=== PATIENT | male | born 1970 | race Two or more races ===

== ENCOUNTER 2024-07-25 19:48 | Emergency (ER) | payer OTHER, SELFPAY ==
--- NOTE | ~2024-07-25 | US_ITS ---
EXAMINATION: US ABDOMEN LIMITED CLINICAL INFORMATION: Right upper quadrant pain. COMPARISON: None available. TECHNIQUE: Real-time imaging of the right upper quadrant abdominal viscera. FINDINGS: GALLBLADDER: There are multiple echogenic mobile gallstones with gallbladder wall thickness measuring 0.2 cm. Some echogenic debris seen within as well. No pericholecystic fluid collection. COMMON BILE DUCT: Normal in caliber measuring 0.3 cm in diameter. FREE FLUID: None. US/US abdomen limited IMPRESSION: Mobile gallstones without wall thickening or tenderness in right upper quadrant. Scattered debris seen within the gallbladder. Normal gallbladder wall thickness. Electronically signed by: Adebayo Navarrete MD 07/25/2024 09:11 PM EST RP
[2024-07-25 19:52] VITALS: BP 142/94; PULSE 90; RESP 18; TEMP 37.1; O2SAT 98; BMI 29.4
--- NOTE | 2024-07-25 19:52 | ED_ITS ---
HPI - General Adult General Chief complaint: Abdominal Pain Stated complaint: rt side pain under ribs/heartburn? Time Seen by Provider: 07/26/24 00:58 Source: patient Mode of arrival: ambulatory Limitations: no limitations History of Present Illness ED Provider: HPI narrative: Patient with no history of gallstones complaining of right upper quadrant pain for last 3 days getting worse after eating food denied patient has got woke pain denies any nausea vomiting or diarrhea never had similar pain in the past no fever no chills Related Data Previous Rx's ?Medication ?Instructions ?Recorded oxycodone 5 mg tablet 5 mg PO Q6H PRN pain #20 tabs 07/26/24 Allergies Allergy/AdvReac Type Severity Reaction Status Date / Time No Known Allergies Allergy Verified 07/26/24 16:22 Review of Systems 2 Review of Systems: Yes all other systems are reviewed and are negative PMFSH Social History Social History Household Members: Spouse Housing: House Do you presently have visiting nurse or other home services: No Patient Tobacco Use Status: Current someday Tobacco user Tobacco use type: Cigarette Cigarettes Per Day: 1 Smoked in Last 30 Days: Yes Patient Interested in Nicotine Replacement: No Patient Given Instructions on How to Stop Smoking: No Second Hand Smoke Exposure: No Use of substances other than those prescribed or required for medical reasons: No Have you been hit, kicked, punched, or otherwise hurt by someone within the past year? If so, by whom?: No Do you feel safe in your current relationship?: Yes Is there a partner from a previous relationship who is making you feel unsafe now?: No Are you made to feel afraid or neglected: No Advance Directives: No Advance Directives Information Provided: No Do you have a plan to hurt others: No Plan Recently lost weight without trying: No How much weight loss: Not applicable Eating poorly because of decreased appetite: No Nutrition screen score: 0 Nutrition Risks: No Nutritional Risk Poor oral hygiene: No Physical Exam ED Vital Signs: Vital Signs - 24 hr 07/25/24 19:52 07/26/24 00:32 Temperature 98.8 F 99.3 F Pulse Rate 90 89 Respiratory Rate 18 18 Blood Pressure 142/94 H 147/93 H Pulse Oximetry 98 98 Oxygen Delivery Method Room Air Room Air BMI result Body Mass Index 29.4 Appearance: Alert. Oriented X3. No acute distress. Eyes: No pallor or icterus ENT: Pharynx normal. Oral Mucosa moist Neck: Normal inspection. Neck supple. CVS: Normal heart rate and rhythm. Pulses normal. Respiratory: No respiratory distress. Equal air entry bilateral, no wheezing/rales/rhonchi Abdomen: Soft and tenderness in right upper quadrant and epigastric area no rebound tenderness or guarding Bowel sounds are present, no mass palpable, no CVA tenderness Skin: Skin warm and dry. Normal skin color. Normal skin turgor. Extremities: No lower extremity edema. No calf tenderness Neuro: Oriented X 3. No motor deficit. Course Course Course Narrative: RME, this is a rapid medical exam performed by Ryne Harding please refer to primary provider for complete H&P- 53 year old male presents for evaluation of right sided upper abdominal pain pain that started 4 days ago. His pain is worse after eating fried food. Plan for labs, ultrasound of GB Medications Administered Discontinued Medications Generic Name Dose Route Start Last Admin Trade Name Joseq PRN Reason Stop Dose Admin Ketorolac Tromethamine 60 mg 07/26/24 01:30 07/26/24 01:48 Ketorolac Tromethamine 60 Mg/2 Ml Vial IM 07/26/24 01:31 60 mg ONCE ONE Administration Morphine Sulfate 15 mg 07/26/24 01:30 07/26/24 01:48 Morphine Sulfate Immed Release 15 Mg Tablet PO 07/26/24 01:31 15 mg ONCE ONE Administration Medical Decision Making Medical Decision Making [facility] Narrative: Patient with gallstone/biliary colic no vomiting LFTs are normal no gallbladder wall thickness patient advised to see surgeon today as outpatient Differential Diagnosis Differential Diagnoses: The differential diagnosis associated with the presentation includes Cholelithiasis /cholecystitis Lab Data [facility] Lab Attestation statement: I reviewed the patient's lab results. 07/25/24 20:44 07/25/24 20:44 Labs: Lab Results 07/25/24 Range/Units 20:44 WBC 11.6 H (4.8-10.8) X10*3/uL RBC 5.05 (4.60-5.80) X10*6/uL Hgb 15.4 (14.0-18.0) g/dl Hct 44.6 (42.0-52.0) % MCV 88.3 (80.0-98.0) fL MCH 30.5 (27.0-33.0) pg MCHC 34.5 (31.0-36.0) g/dl RDW 12.9 (11.0-16.0) % Plt Count 187 (160-400) X10*3/uL MPV 9.2 L (9.4-12.4) fL Immature Gran % (Auto) 0.3 (0.0-0.4) % Neut % (Auto) 83.4 H (45-73) % Lymph % (Auto) 10.5 L (20-40) % [place] % (Auto) 5.3 (2-11) % Eos % (Auto) 0.1 (0-4) % Baso % (Auto) 0.4 (0-2) % Lymph # (Auto) 1.2 (1.2-4.9) X10*3/uL [place] # (Auto) 0.6 (0.1-1.2) X10*3/uL Eos # (Auto) 0.0 (0.0-0.4) X10*3/uL Baso # (Auto) 0.1 (0.0-0.2) X10*3/uL Abs Immat Gran (auto) 0.03 (0.00-0.03) X10*3/uL Absolute Neuts (auto) 9.7 H (2.0-8.3) x10*3/uL Absolute Nucleated RBC 0.000 (0.0-0.012) X10*3/uL Nucleated RBC % (auto) 0.0 (0.0-0.2) /100WBC Sodium 133 L (135-145) mmol/L Potassium 4.2 (3.3-5.1) mmol/L Chloride 99 (96-108) mmol/L Carbon Dioxide 27 (22-29) mmol/L Anion Gap 11 L (12-20) BUN 17 H (9-16) mg/dL Creatinine 0.85 (0.5-1.4) mg/dL Estim Creat Clear Calc 101.3 Estimated GFR > 60 Random Glucose 171 H (60-115) mg/dL Calcium 9.3 (8.4-10.2) mg/dL Total Bilirubin 1.1 H (0.0-1.0) mg/dL AST 21 (5-37) U/L ALT 29 (0-40) U/L Alkaline Phosphatase 65 (39-117) U/L Total Protein 7.7 (6.5-8.0) g/dL Albumin 4.4 (3.5-5.0) g/dL Lipase 14 (8-78) U/L Radiology Impression Discussion of test interpretation with radiology: I have reviewed the radiologist's reading. Radiologist Impression: [address] [address] Ultrasound Report Signed Patient: Stan Hughes MR#: [id number] : 1970 Acct:[id number] Age/Sex: 53 / M ADM Date: 07/25/24 Loc: .ED Attending Dr: Ordering Physician: Khris Harding Date of Service: 07/25/24 Procedure(s): US abdomen limited Accession Number(s): [id number] cc: JOAN MICHAUD MD; Khris Harding~ EXAMINATION: US ABDOMEN LIMITED CLINICAL INFORMATION: Right upper quadrant pain. COMPARISON: None available. TECHNIQUE: Real-time imaging of the right upper quadrant abdominal viscera. FINDINGS: GALLBLADDER: There are multiple echogenic mobile gallstones with gallbladder wall thickness measuring 0.2 cm. Some echogenic debris seen within as well. No pericholecystic fluid collection. COMMON BILE DUCT: Normal in caliber measuring 0.3 cm in diameter. FREE FLUID: None. US/US abdomen limited IMPRESSION: Mobile gallstones without wall thickening or tenderness in right upper quadrant. Scattered debris seen within the gallbladder. Normal gallbladder wall thickness. Electronically signed by: Adebayo Navarrete MD 07/25/2024 09:11 PM [facility] Discharge Plan Discharge Clinical Impression: Gallstone Patient Disposition: Home, Self-Care Instructions: Gallstones (ED) Additional Instructions: Drink plenty of fluids Avoid fried foods Pain medication as prescribed Follow up with surgeon Report to the ER if worsening of the pain/vomiting Prescriptions: New oxycodone 5 mg tablet 5 mg PO Q6H PRN (Reason: pain) Qty: 20 0RF Rx Instructions: Partial Fill upon patient request. Referrals: Abdirahman Reveles MD [Physician] - 1 week Interventions: ED Discharge Assessment Last Done: 07/26/24 02:14 Discharge Date/Time: 07/26/24 02:15 Print Language: Turkish
--- NOTE | 2024-07-25 19:55 | ECG_ITS ---
Test Reason : ABD PAIN Blood Pressure : / mmHG Vent. Rate : 092 BPM Atrial Rate : 092 BPM P-R Int : 136 ms QRS Dur : 090 ms QT Int : 352 ms P-R-T Axes : 046 032 035 degrees QTc Int : 435 ms Sinus rhythm with occasional Premature ventricular complexes Otherwise normal ECG No previous ECGs available Referred By: Khris Harding Electronically Signed By:ASHOK MEDRANO
[2024-07-25 20:49] LABS: MANUAL DIFF FLAG NO
[2024-07-25 20:51] LABS: Basophils Absolute Auto 0.1 X10*3/uL (0.0-0.2); Basophils Percent Auto 0.4 % (0-2); Eosinophils Percent Auto 0.1 % (0-4); Hematocrit 44.6 % (42.0-52.0); Hemoglobin 15.4 g/dl (14.0-18.0); Imm Gran Abs Auto 0.03 X10*3/uL (0.00-0.03); Imm Gran Pct Auto 0.3 % (0.0-0.4); Lymphocytes Absolute Auto 1.2 X10*3/uL (1.2-4.9); Lymphocytes Percent Auto 10.5 % (20-40); Mean Corpuscular HGB Conc 34.5 g/dl (31.0-36.0); Mean Corpuscular Hemoglobin 30.5 pg (27.0-33.0); Mean Corpuscular Volume 88.3 fL (80.0-98.0); Mean Platelet Volume 9.2 fL (9.4-12.4); Monocytes Absolute Auto 0.6 X10*3/uL (0.1-1.2); Monocytes Percent Auto 5.3 % (2-11); Neutrophils Absolute Auto 9.7 x10*3/uL (2.0-8.3); Neutrophils Percent Auto 83.4 % (45-73); Platelet Count 187 X10*3/uL (160-400); Red Blood Count 5.05 X10*6/uL (4.60-5.80); Red Cell Distribution Width 12.9 % (11.0-16.0); White Blood Count 11.6 X10*3/uL (4.8-10.8)
[2024-07-25 21:08] LABS: Alanine Aminotransferase 29 U/L (0-40); Albumin Level 4.4 g/dL (3.5-5.0); Alkaline Phosphatase 65 U/L (39-117); Anion Gap 11 (12-20); Aspartate Amino Transferase 21 U/L (5-37); Bilirubin Total 1.1 mg/dL (0.0-1.0); Blood Urea Nitrogen 17 mg/dL (9-16); Calcium 9.3 mg/dL (8.4-10.2); Carbon Dioxide 27 mmol/L (22-29); Chloride 99 mmol/L (96-108); Creatinine Clr Calc Pharmacy 101.3; Estimated Glomerular Filt Rate > 60; Glucose Random 171 mg/dL (60-115); Lipase 14 U/L (8-78); Potassium 4.2 mmol/L (3.3-5.1); Sodium 133 mmol/L (135-145); Total Protein 7.7 g/dL (6.5-8.0)
[2024-07-26 00:32] VITALS: BP 147/93; PULSE 89; RESP 18; TEMP 37.4; O2SAT 98
[2024-07-26] MEDS: Morphine Sulfate Immed Release 15 MG TABLET PO (01:48)
[2024-07-26] MEDS: Ketorolac Tromethamine 60 MG/2 ML VIAL IM (01:48)
[2024-07-26 02:14] VITALS: BP 147/93; PULSE 89; RESP 18; TEMP 37.4; O2SAT 98
== END 2024-07-26 02:15 | disposition home or self-care (01) ==
PROVIDERS: Physician Assistant; Emergency Provider Internal Medicine; PCP Pediatrics
DX: K80.20 Calculus of gallbladder without cholecystitis without obstruction (principal); R10.2 Pelvic and perineal pain; R10.13 Epigastric pain; F17.210 Nicotine dependence, cigarettes, uncomplicated; Z79.899 Other long term (current) drug therapy
CPT/HCPCS: 36415; 76705; 80053; 83690; 85025; 93005; 96372; 99284; J1885

== ENCOUNTER → 2024-07-25 19:55 | Outpatient (BNV) | payer MEDICAID, SELFPAY | PROVIDERS: Emergency Provider Internal Medicine; PCP Pediatrics; Visit Provider Internal Medicine | DX: R10.9 Unspecified abdominal pain (principal) | CPT/HCPCS: 93010 ==

== ENCOUNTER 2024-07-26 16:17 | Inpatient (IN) | payer OTHER, SELFPAY ==
--- NOTE | ~2024-07-26 | CT_ITS ---
EXAMINATION: CT ABDOMEN AND PELVIS WITH CONTRAST CLINICAL INFORMATION: pain, cholecystitis COMPARISON: Same day right upper quadrant ultrasound dated 07/26/2024 TECHNIQUE: Multidetector volumetric images were obtained from the superior aspect of the liver through the pubic symphysis following administration 85 mL of Omnipaque 350 intravenous contrast. Sagittal and coronal reformatted images were obtained on the technologist's workstation. Oral contrast: No This CT examination was performed using dose optimization techniques as appropriate, variously including the following: *Automated exposure control *Adjustment of mA and/or kV according to patient size (this includes techniques or standardized protocols for targeted exams where dose is matched to indication/reason for exam; i.e. extremities or head) *Use of iterative reconstruction technique DLP: 516 mGy-cm FINDINGS: LUNG BASES: Right basilar atelectasis. LIVER, GALLBLADDER, AND BILIARY TREE: The liver is normal in size, shape, and attenuation. No focal hepatic lesion or biliary ductal dilatation is present. The gallbladder is distended with extensive pericolonic stranding likely representing acute cholecystitis. The stranding extends around the hepatic flexure of the colon and down into the right paracolic gutter, where there is a small amount of free fluid. No drainable fluid collection. There is mucosal hyperenhancement of the common bile duct, which is otherwise not dilated but is concerning for cholangitis. PANCREAS: Unremarkable. SPLEEN: Unremarkable. ADRENAL GLANDS: Unremarkable. KIDNEYS AND URETERS: The kidneys are normal in size, shape, and attenuation. No hydronephrosis, hydroureter, or calculi seen. No perinephric stranding. BLADDER: Unremarkable. GASTROINTESTINAL TRACT: Small hiatal hernia. Circumferential bowel wall thickening in the hepatic flexure and extensive pericolonic stranding, which is an extension of the pericholecystic stranding, which then continues into the right paracolic cutter. Mild diverticulosis in the descending and sigmoid colon without secondary signs of acute diverticulitis. The small bowel is unremarkable. The appendix is unremarkable. ABDOMINAL WALL: No significant hernia is appreciated. LYMPH NODES: Normal. VASCULAR: Mild scattered atherosclerosis of the aorta and its branches. No abdominal aortic aneurysm. PELVIC VISCERA: Unremarkable. OSSEOUS STRUCTURES: Mild degenerative changes of the spine. CT/CT abdomen pelvis w IV con IMPRESSION: 1. Acute cholecystitis with a distended gallbladder and extensive pericholecystic stranding. The stranding extends around the hepatic flexure of the colon and down into the right paracolic gutter, where there is a small amount of free fluid. No drainable fluid collection. 2. Mucosal hyperenhancement of the common bile duct, which is otherwise not dilated but is concerning for cholangitis. 3. Circumferential wall thickening of the hepatic flexure and extensive pericolonic stranding, which is likely an extension of the pericholecystic stranding, as above. However, recommend colonoscopy after resolution of acute symptoms. 4. Mild diverticulosis in the descending and sigmoid colon without secondary signs of acute diverticulitis. 5. Small hiatal hernia. Fleischner guidelines were followed. Electronically signed by: Carin Abreu MD 07/26/2024 11:00 PM [facility]
--- NOTE | ~2024-07-26 | US_ITS ---
EXAMINATION: US ABDOMEN LIMITED CLINICAL INFORMATION: Right upper quadrant pain. COMPARISON: 07/25/2024 TECHNIQUE: Real-time imaging of the right upper quadrant abdominal viscera. FINDINGS: GALLBLADDER: Gallbladder is distended distended with multiple stones. There is small volume pericholecystic fluid and possible fluid within the gallbladder wall. No gallbladder wall thickening. Positive sonographic Quinteros's sign. COMMON BILE DUCT: Normal in caliber measuring 0.3 cm in diameter. US/US abdomen limited IMPRESSION: Cholelithiasis with small volume pericholecystic fluid and possible fluid within the gallbladder wall. Positive sonographic Quinteros's sign. These findings are concerning for acute cholecystitis. Electronically signed by: Stefany Ace MD 07/26/2024 07:59 PM [facility]
[2024-07-26 16:19] VITALS: BP 130/87; PULSE 104; RESP 18; TEMP 36.6; O2SAT 99; BMI 29.4
[2024-07-26 16:42] LABS: MANUAL DIFF FLAG NO
[2024-07-26 16:44] LABS: Basophils Percent Auto 0.2 % (0-2); Hematocrit 48.2 % (42.0-52.0); Hemoglobin 16.4 g/dl (14.0-18.0); Imm Gran Pct Auto 0.6 % (0.0-0.4); Lymphocytes Absolute Auto 0.7 X10*3/uL (1.2-4.9); Lymphocytes Percent Auto 4.5 % (20-40); Mean Corpuscular Hemoglobin 29.9 pg (27.0-33.0); Mean Corpuscular Volume 87.8 fL (80.0-98.0); Mean Platelet Volume 9.2 fL (9.4-12.4); Monocytes Absolute Auto 1.3 X10*3/uL (0.1-1.2); Monocytes Percent Auto 7.8 % (2-11); Neutrophils Absolute Auto 14.2 x10*3/uL (2.0-8.3); Neutrophils Percent Auto 86.9 % (45-73); Platelet Count 210 X10*3/uL (160-400); Red Blood Count 5.49 X10*6/uL (4.60-5.80); Red Cell Distribution Width 12.8 % (11.0-16.0); White Blood Count 16.4 X10*3/uL (4.8-10.8)
[2024-07-26 17:10] LABS: Albumin Level 4.4 g/dL (3.5-5.0); Anion Gap 14 (12-20); Aspartate Amino Transferase 28 U/L (5-37); Bilirubin Direct 0.4 mg/dL (0.0-0.5); Bilirubin Total 1.2 mg/dL (0.0-1.0); Blood Urea Nitrogen 17 mg/dL (9-16); Calcium 10.4 mg/dL (8.4-10.2); Carbon Dioxide 29 mmol/L (22-29); Chloride 95 mmol/L (96-108); Creatinine Clr Calc Pharmacy 76.2; Estimated Glomerular Filt Rate > 60; Glucose Random 193 mg/dL (60-115); Lipase 29 U/L (8-78); Potassium 4.7 mmol/L (3.3-5.1); Sodium 133 mmol/L (135-145); Total Protein 8.1 g/dL (6.5-8.0)
[2024-07-26 17:28] LABS: Alanine Aminotransferase 26 U/L (0-40); Alkaline Phosphatase 69 U/L (39-117)
--- NOTE | 2024-07-26 19:59 | ED_ITS ---
HPI - Abdominal Pain General Chief Complaint: Abdominal Pain Stated Complaint: ?gallbladder stones Time Seen by Provider: 07/26/24 19:53 Source: patient Limitations: no limitations History of Present Illness ED Provider: Jeanette miller PA-C HPI narrative: 53-year-old male with a history of obesity and known cholelithiasis, presents with ongoing right upper quadrant pain. Patient was seen yesterday in the emergency department, however his symptoms are progressing. He had surgical consult yesterday, he was instructed to return if his symptoms worsened. Pain is unable to eat, he continues to have nausea vomiting. He was sent with pain medications, he can not tolerate them. No fevers. Related Data Previous Rx's ?Medication ?Instructions ?Recorded oxycodone 5 mg tablet 5 mg PO Q6H PRN pain #20 tabs 07/26/24 Allergies Allergy/AdvReac Type Severity Reaction Status Date / Time No Known Allergies Allergy Verified 07/26/24 16:22 Review of Systems Review of Systems Yes all other systems are reviewed and are negative Constitutional: Denies fatigue and Denies fever(s) Cardiovascular: Denies chest pain and Denies dyspnea Respiratory: Denies cough and Denies dyspnea Gastrointestinal: Reports abdominal pain, Reports nausea and Reports vomiting Endocrine: Denies fatigue PMFSH Past Medical History Attestation statement: The following information was validated with the patient. Social History Social History Advance Directives: No Advance Directives Information Provided: No Do you have a plan to hurt others: No Plan Physical Exam ED Vital Signs: Vital Signs - 24 hr 07/26/24 16:19 07/26/24 20:08 Temperature 97.8 F 99.1 F Pulse Rate 104 H 107 H Respiratory Rate 18 18 Blood Pressure 130/87 128/80 Pulse Oximetry 99 94 Oxygen Delivery Method Room Air Room Air BMI result Body Mass Index 29.4 Const Other: Alert Orientation/consciousness: patient oriented x3 Resp Other: Nonlabored respirations Cardio Other: Normal peripheral perfusion GI Other: Abdomen is soft, moderate tenderness epigastric and right upper quadrant with moderate involuntary guarding positive Quinteros's sign Skin Other: Warm dry no rash Neuro General: patient oriented x3, no focal motor deficits and CN's II-XI intact bilaterally Psych Other: Calm cooperative Course Consultations Consultation #1: I paged Dr. Camargo, he will be admitting the patient. He is requesting a CT abdomen and pelvis, due to the elevated bilirubin. We will fractionate Time: 20:14 Medical Decision Making Medical Decision Making MDM Narrative: 53-year-old male with a history of obesity and known cholelithiasis, presents with ongoing right upper quadrant pain. Patient was seen yesterday in the emergency department, however his symptoms are progressing. He had surgical consult yesterday, he was instructed to return if his symptoms worsened. Pain is unable to eat, he continues to have nausea vomiting. He was sent with pain medications, he can not tolerate them. No fevers. Problem: Known cholelithiasis History: Per patient I have considered the following differential diagnoses: Biliary colic, cholecystitis, cholangitis Plan: Screening labs including LFTs and an ultrasound of right upper quadrant were obtained from triage. Patient has a worsening leukocytosis, his LFTs are essentially the same as yesterday. I am waiting on the read of the ultrasound. I will reach out to the surgical service. We will be obtaining blood cultures and starting antibiotics. I have independently reviewed the following tests: Labs: Leukocytosis with left shift, not anemic, no electrolyte abnormality, T bili 1.2 it was 1.1 yesterday the remainder of the LFTs are normal Ultrasound right upper quadrant: US/US abdomen limited IMPRESSION: Cholelithiasis with small volume pericholecystic fluid and possible fluid within the gallbladder wall. Positive sonographic Quinteros's sign. These findings are concerning for acute cholecystitis. Lab Data 07/26/24 16:36 1218 16:36 Labs: Lab Results 07/26/24 Range/Units 16:36 WBC 16.4 H (4.8-10.8) X10*3/uL RBC 5.49 (4.60-5.80) X10*6/uL Hgb 16.4 (14.0-18.0) g/dl Hct 48.2 (42.0-52.0) % MCV 87.8 (80.0-98.0) fL MCH 29.9 (27.0-33.0) pg MCHC 34.0 (31.0-36.0) g/dl RDW 12.8 (11.0-16.0) % Plt Count 210 (160-400) X10*3/uL MPV 9.2 L (9.4-12.4) fL Immature Gran % (Auto) 0.6 H (0.0-0.4) % Neut % (Auto) 86.9 H (45-73) % Lymph % (Auto) 4.5 L (20-40) % [place] % (Auto) 7.8 (2-11) % Eos % (Auto) 0.0 (0-4) % Baso % (Auto) 0.2 (0-2) % Lymph # (Auto) 0.7 L (1.2-4.9) X10*3/uL [place] # (Auto) 1.3 H (0.1-1.2) X10*3/uL Eos # (Auto) 0.0 (0.0-0.4) X10*3/uL Baso # (Auto) 0.0 (0.0-0.2) X10*3/uL Abs Immat Gran (auto) 0.10 H (0.00-0.03) X10*3/uL Absolute Neuts (auto) 14.2 H (2.0-8.3) x10*3/uL Absolute Nucleated RBC 0.000 (0.0-0.012) X10*3/uL Nucleated RBC % (auto) 0.0 (0.0-0.2) /100WBC Sodium 133 L (135-145) mmol/L Potassium 4.7 (3.3-5.1) mmol/L Chloride 95 L (96-108) mmol/L Carbon Dioxide 29 (22-29) mmol/L Anion Gap 14 (12-20) BUN 17 H (9-16) mg/dL Creatinine 1.13 (0.5-1.4) mg/dL Estim Creat Clear Calc 76.2 Estimated GFR > 60 Random Glucose 193 H (60-115) mg/dL Calcium 10.4 H D (8.4-10.2) mg/dL Total Bilirubin 1.2 H (0.0-1.0) mg/dL Direct Bilirubin 0.4 (0.0-0.5) mg/dL AST 28 (5-37) U/L ALT 26 (0-40) U/L Alkaline Phosphatase 69 (39-117) U/L Total Protein 8.1 H (6.5-8.0) g/dL Albumin 4.4 (3.5-5.0) g/dL Lipase 29 (8-78) U/L Discharge Plan Discharge Clinical Impression: Acute cholecystitis due to biliary calculus Patient Disposition: Admitted As Inpatient Prescriptions: No Action oxycodone 5 mg tablet 5 mg PO Q6H PRN (Reason: pain) Qty: 20 0RF Rx Instructions: Partial Fill upon patient request. Print Language: Kinyarwanda
[2024-07-26 20:08] VITALS: BP 128/80; PULSE 107; RESP 18; TEMP 37.3; O2SAT 94
--- NOTE | 2024-07-26 20:35 | PHA.MEDREC ---
Addendum entered by Monroe Chahal 07/26/24 20:46: reviewed Original Note: Pharmacy Consult ? Medication Reconciliation Pharmacy has completed the medication reconciliation. Went to speak with patient about medications and he has and Rx Bottle on hand that was filled today at [facility] in [place] and it is the Oxycodone 5mg tab, it states he is taking 1 tab every 6 hours as needed for pain. The patient confirmed he took his last dose of that before coming in @1720 this afternoon.
[2024-07-26] MEDS: Morphine Sulfate 10 MG/ML CARTRIDGE 8 MG IVPUSH (20:36)
[2024-07-26] MEDS: ondansetron HCL 4 MG/2 ML VIAL IVPUSH (20:36)
[2024-07-26] MEDS: cefTRIAXone sodium 2 GM VIAL IVPUSH (20:36)
[2024-07-26] MEDS: 0.9 % Sodium Chloride 1,000 ML 999 ML IV (20:40)
[2024-07-26] MEDS: metroNIDAZOLE/NS 500 MG/100 ML PIGGYBACK 100 MG IV (20:40)
[2024-07-26 20:41] LABS: Lactic Acid 1.3 mmol/L (0.5-2.0)
[2024-07-26] MEDS: Piperacillin Sodium/Tazobactam 3.375 GM in 0.9 % Sodium Chloride 50 ML IV (20:54)
[2024-07-26] MEDS: iohexoL 350 MG/ML 100 ML INFUS..BTL IV (21:06)
[2024-07-26] MEDS: 0.9 % Sodium Chloride 1,000 ML 100 ML IVCONT (22:12)
[2024-07-26 23:05] VITALS: BP 103/68; PULSE 97; RESP 16; TEMP 37.1; O2SAT 92
[2024-07-27] VITALS (13 sets, daily range): BP systolic 103–140; BP diastolic 64–80; PULSE 94–107; RESP 14–18; TEMP 36.2–37.3; O2SAT 92–96; BMI 28.4
[2024-07-27] MEDS: Piperacillin Sodium/Tazobactam 3.375 GM in 0.9 % Sodium Chloride 50 ML IV ×4 (02:19→22:28)
[2024-07-27 06:49] LABS: Alanine Aminotransferase 18 U/L (0-40); Albumin Level 3.6 g/dL (3.5-5.0); Alkaline Phosphatase 58 U/L (39-117); Anion Gap 13 (12-20); Aspartate Amino Transferase 22 U/L (5-37); Bilirubin Direct 0.5 mg/dL (0.0-0.5); Bilirubin Total 1.2 mg/dL (0.0-1.0); Blood Urea Nitrogen 18 mg/dL (9-16); Calcium 9.5 mg/dL (8.4-10.2); Carbon Dioxide 31 mmol/L (22-29); Chloride 103 mmol/L (96-108); Creatinine Clr Calc Pharmacy 65.7; Estimated Glomerular Filt Rate 58; Glucose Random 149 mg/dL (60-115); Potassium 5.1 mmol/L (3.3-5.1); Sodium 142 mmol/L (135-145); Total Protein 6.9 g/dL (6.5-8.0)
--- NOTE | 2024-07-27 08:05 | PM.HPGS ---
History of Present Illness History of Present Illness Date of Service: 07/31/24 Chief complaint: Gallstones Narrative: Stan Hughes is a 53 year old male admitted last night for gallstones with pain He says had been in good health but about 5 days ago, he had an episode of pain on the right upper quadrant at home. He took some pain medications and this resolved after a few hours. He did well that Wednesday which was 4 days ago. Three days ago, he started to have the same pain again. This persisted this time and he went to the ER 2 days ago. He had an ultrasound done showing gallstones but at that time, he decided to go home when he had some improvement of his pain. However, his pain had persisted and worsened yesterday so he came back to the ER. He describes some nausea as well. He otherwise denies any medical problems. He says his pain is specific in location on the right upper quadrant. Review of Systems Constitutional: Constitutional: Denies chills and Denies fever(s) Cardiovascular: Cardiovascular: Denies chest pain, Denies dyspnea and Denies dyspnea on exertion Respiratory: Respiratory: Denies cough, Denies dyspnea and Denies dyspnea on exertion Gastrointestinal: Gastrointestinal: Denies hematochezia and Denies change in bowel habits Genitourinary: Genitourinary: Denies hematuria and Denies difficulty urinating Musculoskeletal: Musculoskeletal: Denies back pain and Denies limited range of motion Neurologic: Denies focal weakness and Denies convulsions Psychiatric: Psychiatric: Denies depression and Denies mood swings PMFSH Social History Social History Household Members: Spouse Housing: House Are you a primary nonfarm animal caretaker to a significant other at home: No Do you presently have visiting nurse or other home services: No Patient Tobacco Use Status: Current someday Tobacco user Tobacco use type: Cigarette and Smokeless Tobacco Cigarettes Per Day: 1 Smoked in Last 30 Days: Yes Patient Interested in Nicotine Replacement: No Patient Given Instructions on How to Stop Smoking: No Second Hand Smoke Exposure: No Use of substances other than those prescribed or required for medical reasons: No Currently Displaying Signs/Symptoms of Drug Intoxication Withdrawal: No Have you been hit, kicked, punched, or otherwise hurt by someone within the past year? If so, by whom?: No Do you feel safe in your current relationship?: Yes Is there a partner from a previous relationship who is making you feel unsafe now?: No Are you made to feel afraid or neglected: No Are you DNR?: No Advance Directives: No Advance Directives Information Provided: No Do you have a plan to hurt others: No Plan Recently lost weight without trying: No How much weight loss: Not applicable Eating poorly because of decreased appetite: No Nutrition screen score: 0 Nutrition Risks: No Nutritional Risk Poor oral hygiene: No service: No Meds Allergies Allergy/AdvReac Type Severity Reaction Status Date / Time No Known Allergies Allergy Verified 07/26/24 16:22 Active Medications: Current Medications Acetaminophen (Acetaminophen 325 Mg Tablet) 650 mg PO Q6H PRN PRN Reason: Pain, Mild (Pain Scale 1-3), fever or headache Calcium Carbonate (Calcium Carbonate 750 Mg Tab.Chew) 750 mg PO Q4H PRN PRN Reason: Heartburn Heparin Sodium (Porcine) (Heparin Sodium,Porcine 5,000 Unit/Ml Vial) 5,000 unit SUBCUT Q8H [facility] Sodium Chloride (Ns) 1,000 mls @ 100 mls/hr IVCONT .Q10H [facility] Last Admin: 07/27/24 05:51 Dose: Not Given Piperacillin Sod/Tazobactam (Sod 3.375 gm/ Sodium Chloride) 50 mls @ 100 mls/hr IV Q6H [facility] Last Admin: 07/27/24 07:27 Dose: 100 mls/hr Melatonin (Melatonin 3 Mg Tablet) 6 mg PO BEDTIME PRN PRN Reason: Insomnia Morphine Sulfate (Morphine Sulfate 4 Mg/Ml Cartridge) 4 mg IVPUSH Q3H PRN; Protocol PRN Reason: Pain, Severe (Pain Scale 7-10) Ondansetron HCl (Ondansetron Hcl 4 Mg/2 Ml Vial) 4 mg IVPUSH Q6H PRN PRN Reason: nausea Oxycodone HCl (Oxycodone Hcl Immed Release 5 Mg Tablet) 5 mg PO Q6H PRN PRN Reason: Pain, Moderate(Pain Scale 4-6) Sodium Chloride (0.9 % Sodium Chloride Flush 3 Ml Syringe) 3 ml IVFLUSH QSHIFT [facility] Last Admin: 07/27/24 07:27 Dose: Not Given Physical Exam Vital Signs: Vital Signs: Last Vital Signs Temp 99.2 F 12/19/24 07:20 Pulse 100 07/27/24 07:20 Resp 16 07/27/24 07:20 BP 140/78 H 07/27/24 07:20 Pulse Ox 96 07/27/24 07:20 O2 Del Method Room Air 07/27/24 07:20 BMI result Body Mass Index 28.4 Results Results Labs: Short CBC 07/26/24 Range/Units 16:36 WBC 16.4 H (4.8-10.8) X10*3/uL Hgb 16.4 (14.0-18.0) g/dl Hct 48.2 (42.0-52.0) % Plt Count 210 (160-400) X10*3/uL BMP 07/26/24 07/27/24 16:36 05:25 Sodium 133 L 142 Potassium 4.7 5.1 Chloride 95 L 103 Carbon Dioxide 29 31 H BUN 17 H 18 H Creatinine 1.13 1.29 Calcium 10.4 H D 9.5 D Liver Function 07/26/24 07/27/24 Range/Units 16:36 05:25 Total Bilirubin 1.2 H 1.2 H (0.0-1.0) mg/dL Direct Bilirubin 0.4 0.5 (0.0-0.5) mg/dL AST 28 22 (5-37) U/L ALT 26 18 (0-40) U/L Alkaline Phosphatase 69 58 (39-117) U/L Albumin 4.4 3.6 (3.5-5.0) g/dL Abdomen CT scan report/results: report reviewed and image reviewed CT scan - pelvis: report reviewed and image reviewed Abdominal ultrasound report/results: report reviewed and image reviewed Additional studies: Laboratory Results WBC 16.4 X10*3/uL (4.8-10.8) H 07/26/24 16:36 RBC 5.49 X10*6/uL (4.60-5.80) 07/26/24 16:36 Hgb 16.4 g/dl (14.0-18.0) 07/26/24 16:36 Hct 48.2 % (42.0-52.0) 07/26/24 16:36 MCV 87.8 fL (80.0-98.0) 07/26/24 16:36 MCH 29.9 pg (27.0-33.0) 07/26/24 16:36 MCHC 34.0 g/dl (31.0-36.0) 07/26/24 16:36 RDW 12.8 % (11.0-16.0) 07/26/24 16:36 Plt Count 210 X10*3/uL (160-400) 07/26/24 16:36 MPV 9.2 fL (9.4-12.4) L 07/26/24 16:36 Immature Gran % (Auto) 0.6 % (0.0-0.4) H 07/26/24 16:36 Neut % (Auto) 86.9 % (45-73) H 07/26/24 16:36 Lymph % (Auto) 4.5 % (20-40) L 07/26/24 16:36 [place] % (Auto) 7.8 % (2-11) 07/26/24 16:36 Eos % (Auto) 0.0 % (0-4) 07/26/24 16:36 Baso % (Auto) 0.2 % (0-2) 07/26/24 16:36 Lymph # (Auto) 0.7 X10*3/uL (1.2-4.9) L 07/26/24 16:36 [place] # (Auto) 1.3 X10*3/uL (0.1-1.2) H 07/26/24 16:36 Eos # (Auto) 0.0 X10*3/uL (0.0-0.4) 07/26/24 16:36 Baso # (Auto) 0.0 X10*3/uL (0.0-0.2) 07/26/24 16:36 Abs Immat Gran (auto) 0.10 X10*3/uL (0.00-0.03) H 07/26/24 16:36 Absolute Neuts (auto) 14.2 x10*3/uL (2.0-8.3) H 07/26/24 16:36 Absolute Nucleated RBC 0.000 X10*3/uL (0.0-0.012) 07/26/24 16:36 Nucleated RBC % (auto) 0.0 /100WBC (0.0-0.2) 07/26/24 16:36 Hold Purple Top SEE NOTE 07/27/24 05:25 Sodium 142 mmol/L (135-145) 07/27/24 05:25 Potassium 5.1 mmol/L (3.3-5.1) 07/27/24 05:25 Chloride 103 mmol/L (96-108) 07/27/24 05:25 Carbon Dioxide 31 mmol/L (22-29) H 07/27/24 05:25 Anion Gap 13 (12-20) 07/27/24 05:25 BUN 18 mg/dL (9-16) H 07/27/24 05:25 Creatinine 1.29 mg/dL (0.5-1.4) 07/27/24 05:25 Estim Creat Clear Calc 65.7 07/27/24 05:25 Estimated GFR 58 07/27/24 05:25 Random Glucose 149 mg/dL (60-115) H 07/27/24 05:25 Lactic Acid 1.3 mmol/L (0.5-2.0) 07/26/24 20:22 Calcium 9.5 mg/dL (8.4-10.2) D 07/27/24 05:25 Total Bilirubin 1.2 mg/dL (0.0-1.0) H 07/27/24 05:25 Direct Bilirubin 0.5 mg/dL (0.0-0.5) 07/27/24 05:25 AST 22 U/L (5-37) 07/27/24 05:25 ALT 18 U/L (0-40) 07/27/24 05:25 Alkaline Phosphatase 58 U/L (39-117) 07/27/24 05:25 Total Protein 6.9 g/dL (6.5-8.0) 07/27/24 05:25 Albumin 3.6 g/dL (3.5-5.0) 07/27/24 05:25 Lipase 29 U/L (8-78) 07/26/24 16:36 Impressions Abdomen Ultrasound 07/26/24 17:51 IMPRESSION: Cholelithiasis with small volume pericholecystic fluid and possible fluid within the gallbladder wall. Positive sonographic Quinteros's sign. These findings are concerning for acute cholecystitis. Electronically signed by: Stefany Ace MD 07/26/2024 07:59 PM EST RP Abdomen/Pelvis CT 07/26/24 20:52 IMPRESSION: 1. Acute cholecystitis with a distended gallbladder and extensive pericholecystic stranding. The stranding extends around the hepatic flexure of the colon and down into the right paracolic gutter, where there is a small amount of free fluid. No drainable fluid collection. 2. Mucosal hyperenhancement of the common bile duct, which is otherwise not dilated but is concerning for cholangitis. 3. Circumferential wall thickening of the hepatic flexure and extensive pericolonic stranding, which is likely an extension of the pericholecystic stranding, as above. However, recommend colonoscopy after resolution of acute symptoms. 4. Mild diverticulosis in the descending and sigmoid colon without secondary signs of acute diverticulitis. 5. Small hiatal hernia. Fleischner guidelines were followed. Electronically signed by: Carin Abreu MD 07/26/2024 11:00 PM [facility] [place] Plan (1) Acute cholecystitis due to biliary calculus: Status: Acute He has right upper quadrant pain and tenderness. His ultrasound and CT scan show acute cholecystitis. He has a markedly distended gallbladder with significant thickening of the gallbladder wall. The inflammatory changes extend into the adjacent flexure. The images do not suggest a CBD stone. I therefore explained to him that it will be best to proceed with laparoscopic cholecystectomy with possible open cholecystectomy. I explained to him the technique of this procedure. I reviewed the risks including but not limited to bleeding, infections, injury to other organs including bowel, liver and the bile duct, retained stones, bile leak, as well as the benefits and alternatives. I also reviewed with him what to expect postoperatively. He understands and wants to proceed. He is on the add on schedule for today laparoscopic cholecystectomy and possible open cholecystectomy. Review of his CT scan images suggest severe inflammatory changes surrounding the CT scan so I explained to him that there is a higher likelihood that we may need to convert to an open procedure. Quality Stroke Does the patient have a stroke diagnosis?: No VTE Prior VTE?: No VTE Risk Level:: Medical - moderate - high VTE Device Contraindication: N/A - Device Ordered VTE Drug Contraindication: N/A - Med Ordered Procedures Date of Service Date of Service: 07/31/24
[2024-07-27] MEDS: 0.9 % Sodium Chloride 1,000 ML 100 ML IVCONT (09:11)
--- NOTE | 2024-07-27 09:21 | MHC.CM.PN ---
CM MET WITH PT AND [facility] AT BEDSIDE. PT LIVES WITH [facility] AND IS FUNCTIONALLY INDEPENDENT. NO SERVICES/DME. EMPLOYED F/T. +HCP PCP DR. JOAN MICHAUD. DP: HOME, NO SERVICES IS ANTICIPATED. [facility] WILL TRANSPORT HOME. CM WILL CONTINUE TO FOLLOW FOR ANY CHANGE TO DC PLAN/NEEDS.
--- NOTE | 2024-07-27 11:28 | HO.ANESPROP2 ---
PMF Active Problems Active Problems: All Active Problems Acute cholecystitis due to biliary calculus (Acute) Past Medical History Functional capacity: independent ambulation Family History Family history of problems with anesthesia: No Surgical History History of Problems with Anesthesia: No Social History Social History Household Members: Spouse Housing: House Are you a primary healthcare economics consultant to a significant other at home: No Do you presently have visiting nurse or other home services: No Patient Tobacco Use Status: Current someday Tobacco user Tobacco use type: Cigarette and Smokeless Tobacco Cigarettes Per Day: 1 Second Hand Smoke Exposure: No service: No Meds Allergies Allergy/AdvReac Type Severity Reaction Status Date / Time No Known Allergies Allergy Verified 07/26/24 16:22 Active Medications: Current Medications Acetaminophen (Acetaminophen 325 Mg Tablet) 650 mg PO Q6H PRN PRN Reason: Pain, Mild (Pain Scale 1-3), fever or headache Calcium Carbonate (Calcium Carbonate 750 Mg Tab.Chew) 750 mg PO Q4H PRN PRN Reason: Heartburn Heparin Sodium (Porcine) (Heparin Sodium,Porcine 5,000 Unit/Ml Vial) 5,000 unit SUBCUT Q8H [facility] Sodium Chloride (Ns) 1,000 mls @ 100 mls/hr IVCONT .Q10H [facility] Last Admin: 07/27/24 09:11 Dose: 100 mls/hr Piperacillin Sod/Tazobactam (Sod 3.375 gm/ Sodium Chloride) 50 mls @ 100 mls/hr IV Q6H [facility] Last Infusion: 07/27/24 09:08 Dose: Infused Melatonin (Melatonin 3 Mg Tablet) 6 mg PO BEDTIME PRN PRN Reason: Insomnia Morphine Sulfate (Morphine Sulfate 4 Mg/Ml Cartridge) 4 mg IVPUSH Q3H PRN; Protocol PRN Reason: Pain, Severe (Pain Scale 7-10) Ondansetron HCl (Ondansetron Hcl 4 Mg/2 Ml Vial) 4 mg IVPUSH Q6H PRN PRN Reason: nausea Oxycodone HCl (Oxycodone Hcl Immed Release 5 Mg Tablet) 5 mg PO Q6H PRN PRN Reason: Pain, Moderate(Pain Scale 4-6) Sodium Chloride (0.9 % Sodium Chloride Flush 3 Ml Syringe) 3 ml IVFLUSH QSHIFT [facility] Last Admin: 07/27/24 07:27 Dose: Not Given Exam Height,Weight and Vital Signs: Height 5 ft 6 in Weight 79.8 kg Last Vital Signs Temp 99.2 F 07/27/24 07:20 Pulse 100 07/27/24 07:20 Resp 16 07/27/24 07:20 BP 140/78 H 07/27/24 07:20 Pulse Ox 96 07/27/24 07:20 O2 Del Method Room Air 07/27/24 07:20 Pertinent Lab Results Pertinent Lab Results: Laboratory Tests 07/26/24 07/26/24 07/27/24 16:36 20:22 05:25 WBC 16.4 H RBC 5.49 Hgb 16.4 Hct 48.2 MCV 87.8 MCH 29.9 MCHC 34.0 RDW 12.8 Plt Count 210 MPV 9.2 L Immature Gran % (Auto) 0.6 H Neut % (Auto) 86.9 H Lymph % (Auto) 4.5 L [facility] % (Auto) 7.8 Eos % (Auto) 0.0 Baso % (Auto) 0.2 Lymph # (Auto) 0.7 L [facility] # (Auto) 1.3 H Eos # (Auto) 0.0 Baso # (Auto) 0.0 Abs Immat Gran (auto) 0.10 H Absolute Neuts (auto) 14.2 H Absolute Nucleated RBC 0.000 Nucleated RBC % (auto) 0.0 Hold Purple Top SEE NOTE Sodium 133 L 142 Potassium 4.7 5.1 Chloride 95 L 103 Carbon Dioxide 29 31 H Anion Gap 14 13 BUN 17 H 18 H Creatinine 1.13 1.29 Estim Creat Clear Calc 76.2 65.7 Estimated GFR > 60 58 Random Glucose 193 H 149 H Lactic Acid 1.3 Calcium 10.4 H D 9.5 D Total Bilirubin 1.2 H 1.2 H Direct Bilirubin 0.4 0.5 AST 28 22 ALT 26 18 Alkaline Phosphatase 69 58 Total Protein 8.1 H 6.9 Albumin 4.4 3.6 Lipase 29 Airway Mallampati Class: III TM Dist: >3cm Neck ROM: Full Heart: RRR Lungs: CTA Assessment and Plan Assessment Anesthesia Assessment: Anesthesia Plan Discussed and Chart Reviewed Final Anesthetic Review Family History of Problems with Anesthesia: No History of Problems with Anesthesia: No NPO: Yes ASA Class: II and Emergency Final Preanesthetic Review: Meds/Allgs Chart Reviewed, Consent Obtained/Reviewed and Anes Risks/Benef Reviewed Patient Risk: Intermediate Procedure Risk: Intermediate Anesthetic Plan Anesthetic Plan: GA Disposition: Standard PACU
[2024-07-27] MEDS: Lactated Ringers 1,000 ML 80 ML IVCONT (13:26)
--- NOTE | 2024-07-27 15:18 | W.PM.OPN ---
Operative Note Operative Note Date of Service: 07/27/24 Narrative: Preop diagnosis: Acute cholecystitis Postop diagnosis: Acute gangrenous cholecystitis Procedure: Attempted laparoscopic cholecystectomy converted to open cholecystectomy Surgeon: Aneudy Camargo MD patient observation assistant: JUDITH Dobbins The patient is a 53-year-old male admitted because of acute cholecystitis. He understood the technique of the planned procedure as well as the risks, benefits, and alternatives He was brought to the operating room. He was placed supine under general anesthesia via endotracheal tube. The abdomen was prepped and draped in the usual sterile fashion. A surgical time-out was done The patient was receiving scheduled IV Zosyn I made a short supraumbilical incision with a blade 15. This was carried down through the full-thickness of the skin and subcutaneous fat down to the fascia. The fascia was incised. The peritoneum was entered. Through this incision a Blanco port was introduced. Pneumoperitoneum was introduced to a pressure of 15 mm Hg. We proceeded to insert the 10 mm laparoscope. With laparoscopic visualization I proceeded to insert a 5/12 mm port in the epigastric area below the subcostal margin. We examined the right upper quadrant laparoscopically. I inserted a grasper through the epigastric port. Patient was placed in a head up position. We examined the subhepatic space. The omentum was markedly adherent to the underside of the liver. I proceeded to gently pull this away from the the hepatic space. I could see part of the anterior wall of the gallbladder and this was gangrenous. We attempted to further released this omentum from the gallbladder but this was very intimately adherent so we decided to proceed with conversion to an open procedure in view of the gangrene of the gallbladder as well as with the very adherent omentum I desufflated through the port sites. I removed all ports I then proceeded to make a subcostal incision in the right side with a blade 15. This was carried down through the full-thickness of the skin and subcutaneous fat with electrocautery. I divided the anterior sheath and the rectus muscle down to the posterior sheath. I then incised the posterior sheath to entered the peritoneum. I extended the incision to achieve optimal exposure . We applied the Bookwalter retractors for exposure. Moist laps were used to protect the bowel loops. Again the omentum was noted to be adherent to the subhepatic space. I gently pulled this to at least expose part of the fundus and the anterior wall of the gallbladder. Again, the gallbladder was black and gangrenous. I gently did blunt dissection with my index finger to release the omentum off of the of the gallbladder. With gentle dissection, we were able to eventually find a plane and separate the very indurated omentum off of the rest of the gallbladder. This allowed me visualization of most of the gallbladder wall. The gallbladder was markedly distended and gangrenous. We attempted to find a plane of dissection he was in the gallbladder wall and the liver bed by carefully incising the peritoneum and proceeded to do blunt dissection with the peanut dissector. Eventually, as able to find a semblance of a plane of dissection between the gallbladder wall and the liver bed. We continued to define this some more with gentle dissection using the peanut dissector. We divided the thickened peritoneum as well both lateral and medial to this to release more of the gallbladder. The area appeared very inflamed and indurated we had to proceed carefully as there was note of significant oozing throughout this dissection. There was note of 1 small but brisk bleeder from the subhepatic space we had to control with Polysorb 3-0 sutures The entire gallbladder all the way down to the neck appeared to be gangrenous but we continued to define this circumferentially. Eventually, I was able to define funneling of the gallbladder down to the neck. Since there was note of a lot of inflammatory changes and induration distal to this I decided that this would be the safest point of transection in view of the risk of injury to the common bile duct and the vessels distally. I applied a right angle clamp across this. I divided this above the clamp and doubly ligated this with the a Polysorb 2-0 tie. I then proceeded to irrigate more. I observed for hemostasis. There was note of significant oozing from the indurated omentum which we had to control with electrocautery. The liver bed otherwise appeared to be dry. I applied Surgicel strips on the liver bed as well as the surface of the indurated omentum We irrigated again copiously. We then observed for hemostasis. Once hemostasis was confirmed, I positioned a 7 WILLARD drain in the subhepatic space and this was brought out through an exit site in the upper quadrant. This was secured to the skin with nylon 3-0 sutures Hemostasis was then confirmed again visually. We then closed the posterior sheath with a running Polysorb 2-0 stitch. Anterior sheath was closed with a Maxon 1 running stitch We closed the fascia of the umbilical incision with a [id number] Polysorb 0 stitch All skin incisions were closed with skin eryn. All incisions were infiltrated with Marcaine 0.5% for postop analgesia. Dressings were applied. The procedure was completed The patient tolerated procedure well. There were no immediate complications. Initial and final counts of sponges and instruments were correct. Estimated blood loss was about 200 cc The patient was extubated without difficulty and transferred to the recovery room with stable vital signs.
[2024-07-27] MEDS: HYDROmorphone HCl 0.5 MG/0.5 ML SYRINGE 0.25 MG IVPUSH ×2 (15:50→15:55)
--- NOTE | 2024-07-27 16:08 | PM.EVENT ---
Event Note Date of Service: 07/28/24 Event Note: seen postop underwent open cholecystectomy -gallbladder gangrenous, very indurated Seems to be comfortable Stable vital signs WILLARD drain about 20 cc, dark red blood Pain management On clear liquids Discussed with Josie over the phone Continue Zosyn Time Spent With Patient Time: Total time managing care of this patient today ____ minutes.
[2024-07-27] MEDS: oxyCODONE HCl Immed Release 5 MG TABLET PO (16:51)
[2024-07-27] MEDS: Acetaminophen 1,000 MG/100 ML PIGGYBACK 400 MG IV (20:36)
[2024-07-27] MEDS: Heparin Sodium,Porcine 5,000 UNIT/ML VIAL 5000 UNIT SUBCUT (20:41)
[2024-07-27] MEDS: 0.9 % Sodium Chloride Flush 3 ML SYRINGE IVFLUSH (22:30)
[2024-07-28 00:02] VITALS: BP 102/61; PULSE 80; RESP 18; TEMP 36.9; O2SAT 96
[2024-07-28] MEDS: 0.9 % Sodium Chloride 1,000 ML 100 ML IVCONT ×2 (01:17→10:27)
[2024-07-28] MEDS: Acetaminophen 1,000 MG/100 ML PIGGYBACK 400 MG IV ×3 (04:01→16:38)
[2024-07-28 04:07] VITALS: BP 121/71; PULSE 73; RESP 18; TEMP 37.1; O2SAT 95
[2024-07-28] MEDS: Heparin Sodium,Porcine 5,000 UNIT/ML VIAL 5000 UNIT SUBCUT ×3 (05:56→19:32)
[2024-07-28] MEDS: Piperacillin Sodium/Tazobactam 3.375 GM in 0.9 % Sodium Chloride 50 ML IV ×4 (05:57→22:13)
[2024-07-28 07:22] VITALS: BP 118/66; PULSE 76; RESP 18; TEMP 36.8; O2SAT 95
--- NOTE | 2024-07-28 08:24 | PM.PNGS ---
Subjective Subjective Date of Service: 07/28/24 <Meghna Dobbins PA-C - Last Filed: 07/28/24 08:26> 07/28/24 <Aneudy Camargo MD - Last Filed: 07/28/24 09:03> Interval history: Very sore at incision site but comfortable. Tolerating liquids. Has not been OOB yet. <Meghna Dobbins PA-C - Last Filed: 07/28/24 08:26> Physical Exam Vital Signs: Vital Signs: Last Vital Signs Temp 98.3 F 07/28/24 07:22 Pulse 76 07/28/24 07:22 Resp 18 07/28/24 07:22 BP 118/66 07/28/24 07:22 Pulse Ox 95 07/28/24 07:22 O2 Del Method Room Air 07/28/24 07:22 O2 Flow Rate 2 07/28/24 04:07 BMI result Body Mass Index 28.4 <Meghna Dobbins PA-C - Last Filed: 07/28/24 08:26> Const: General: comfortable, no acute distress and alert <Meghna Dobbins PA-C - Last Filed: 07/28/24 08:26> Orientation/consciousness: patient oriented x3 <DANIELA Allen Last Filed: 07/28/24 08:26> Resp: Effort & Inspection: normal respiratory effort <DANIELA Allen Last Filed: 07/28/24 08:26> GI: Other: dressing intact WILLARD drain scant serosanguineous output <Meghna Dobbins PA-C - Last Filed: 07/28/24 08:26> Palpation (GI): Soft to palpation, Tenderness to palpation present (GI) (incisional, mild) and no guarding <DANIELA Allen Last Filed: 07/28/24 08:26> Skin: General skin exam: no rashes or lesions noted <DANIELA Allen Last Filed: 07/28/24 08:26> Neuro: General: patient oriented x3 and moves all extremities <DANIELA Allen Last Filed: 07/28/24 08:26> Objective Data Active Medications Calcium Carbonate (Calcium Carbonate 750 Mg Tab.Chew) 750 mg PO Q4H PRN PRN Reason: Heartburn Heparin Sodium (Porcine) (Heparin Sodium,Porcine 5,000 Unit/Ml Vial) 5,000 unit SUBCUT Q8H COUNTS [facility]CLUDE 234 BEDS AT THE [facility] Last Admin: 07/28/24 05:56 Dose: 5,000 unit Documented By: KATRIN Sodium Chloride (Ns) 1,000 mls @ 100 mls/hr IVCONT .Q10H COUNTS INCLUDE 234 BEDS AT THE [facility] Last Admin: 07/28/24 01:17 Dose: 100 mls/hr Documented By: KATRIN Acetaminophen (Ofirmev) 1,000 mg in 100 mls @ 400 mls/hr IV Q6H COUNTS INCLUDE 234 BEDS AT THE [facility] Stop: 07/28/24 15:14 Last Infusion: 07/28/24 04:26 Dose: Infused Documented By: KATRIN Piperacillin Sod/Tazobactam (Sod 3.375 gm/ Sodium Chloride) 50 mls @ 100 mls/hr IV Q6H COUNTS INCLUDE 234 BEDS AT THE [facility] Last Infusion: 07/28/24 06:45 Dose: Infused Documented By: KATRIN Melatonin (Melatonin 3 Mg Tablet) 6 mg PO BEDTIME PRN PRN Reason: Insomnia Morphine Sulfate (Morphine Sulfate 4 Mg/Ml Cartridge) 4 mg IVPUSH Q3H PRN; Protocol PRN Reason: Pain, Severe (Pain Scale 7-10) Ondansetron HCl (Ondansetron Hcl 4 Mg/2 Ml Vial) 4 mg IVPUSH Q6H PRN PRN Reason: nausea Oxycodone HCl (Oxycodone Hcl Immed Release 5 Mg Tablet) 5 mg PO Q4H PRN PRN Reason: Pain, Moderate(Pain Scale 4-6) Last Admin: 07/27/24 16:51 Dose: 5 mg Documented By: KARAN Sodium Chloride (0.9 % Sodium Chloride Flush 3 Ml Syringe) 3 ml IVFLUSH QSHIFT COUNTS INCLUDE 234 BEDS AT THE [facility] Last Admin: 07/27/24 22:30 Dose: 3 ml Documented By: KATRIN <Meghna Dobbins PA-C - Last Filed: 07/28/24 08:26> Labs CBC & Chem 7: 07/26/24 16:36 07/27/24 05:25 <Meghna Dobbins PA-C - Last Filed: 07/28/24 08:26> Labs: Laboratory Results - last 24 hr 07/27/24 12:04 Blood Type O Positive Antibody Screen NEGATIVE <Meghna Dobbins PA-C - Last Filed: 07/28/24 08:26> Microbiology Microbiology Results: Microbiology 07/26/24 20:29 Blood Culture - Preliminary Blood - Venous No growth after 24 hours. 07/26/24 20:22 Blood Culture - Preliminary Blood - Venous No growth after 24 hours. <Meghna Dobbins PA-C - Last Filed: 07/28/24 08:26> Procedures Date of Service Date of Service: 07/28/24 <Meghna Dobbins PA-C - Last Filed: 07/28/24 08:26> 07/28/24 <Aneudy Camargo MD - Last Filed: 07/28/24 09:03> Progress Note: A&P Assessment and plan (1) Acute cholecystitis due to biliary calculus: Status: Acute <Meghna Dobbins PA-C - Last Filed: 07/28/24 08:26> Assessment and Plan: Status post open cholecystectomy Looks well WILLARD output scanty, nonbilious, serosanguineous Diet as tolerated Continue Zosyn because of gangrenous cholecystitis Seen and examined independently at bedside Labs pending <Aneudy Camargo MD - Last Filed: 07/28/24 09:03> (2) S/P cholecystectomy: Status: Acute <Mgehna Dobbins PA-C - Last Filed: 07/28/24 08:26> Assessment and Plan: POD #1 s/p Attempted laparoscopic cholecystectomy converted to open cholecystectomy for acute gangrenous cholecystitis. Overall doing well post op. VSS. Abd exam benign with appropriate post op tenderness, dressings intact. WILLARD output nonbilious. Will advance to solids. Increase activity. Cont pain control. Cont IV zosyn for now. <Meghna Dobbins PA-C - Last Filed: 07/28/24 08:26> Time Spent With Patient Time: Total time managing care of this patient today ____ minutes. <DANIELA Allen Last Filed: 07/28/24 08:26> Quality Stroke Does the patient have a stroke diagnosis?: No <DANIELA Allen Last Filed: 07/28/24 08:26> VTE Prior VTE?: No <Meghna Dobbins PA-C - Last Filed: 07/28/24 08:26> VTE Risk Level:: Medical - moderate - high <DANIELA Allen Last Filed: 07/28/24 08:26> VTE Device Contraindication: N/A - Device Ordered <DANIELA Allen Last Filed: 07/28/24 08:26> VTE Drug Contraindication: N/A - Med Ordered <DANIELA Allen Last Filed: 07/28/24 08:26>
[2024-07-28 09:15] LABS: Anion Gap 14 (12-20); Blood Urea Nitrogen 26 mg/dL (9-16); Calcium 9.1 mg/dL (8.4-10.2); Carbon Dioxide 28 mmol/L (22-29); Chloride 106 mmol/L (96-108); Creatinine Clr Calc Pharmacy 62.3; Estimated Glomerular Filt Rate 55; Glucose Random 163 mg/dL (60-115); Potassium 4.7 mmol/L (3.3-5.1); Sodium 143 mmol/L (135-145)
[2024-07-28 09:21] LABS: Hematocrit 38.8 % (42.0-52.0); Hemoglobin 12.8 g/dl (14.0-18.0); Mean Corpuscular Hemoglobin 30.3 pg (27.0-33.0); Mean Corpuscular Volume 91.7 fL (80.0-98.0); Mean Platelet Volume 9.5 fL (9.4-12.4); Platelet Count 187 X10*3/uL (160-400); Red Blood Count 4.23 X10*6/uL (4.60-5.80); Red Cell Distribution Width 13.4 % (11.0-16.0)
[2024-07-28 09:22] LABS: White Blood Count 11.8 X10*3/uL (4.8-10.8)
[2024-07-28] MEDS: oxyCODONE HCl Immed Release 5 MG TABLET PO ×3 (10:27→22:01)
--- NOTE | 2024-07-28 10:31 | HO.POSTANES ---
Post Anesthesia Evaluation Post Anesthesia Evaluation Date of Service: 07/28/24 Vital Signs: Vital Signs Temp Pulse Resp BP Pulse Ox O2 Del Method O2 Flow Rate 07/28/24 07:22 98.3 F 76 18 118/66 95 Room Air 07/28/24 04:07 98.7 F 73 18 121/71 95 Nasal Cannula 2 07/28/24 00:02 98.4 F 80 18 102/61 96 Nasal Cannula 2 Anesthesia: General Endotracheal-GETA Mental Status: Awake Pain Control: Satisfactory Nausea/Vomiting: None Hydration: Adequate Anesthesia-Related Issues: No Anes. Related Issues
--- NOTE | 2024-07-28 12:55 | MHC.CM.PN ---
Per EMR patient not medically cleared for dc. CM will continue to follow.
[2024-07-28 13:25] VITALS: BP 111/69; PULSE 80; RESP 16; TEMP 37.2; O2SAT 93
--- NOTE | 2024-07-28 15:14 | PM.EVENT ---
Event Note Date of Service: 07/28/24 Event Note: seen on afternoon rounds he feels ok pain seems adequately controlled he has ambulated down the hallway tolerated oral intake abd soft WILLARD drain output serosanguinous looks well labs ok - WBC down pain mgt IV abx Time Spent With Patient Time: Total time managing care of this patient today ____ minutes.
[2024-07-28 22:00] VITALS: BP 117/69; PULSE 75; RESP 16; TEMP 37.2; O2SAT 93
[2024-07-29 03:34] VITALS: BP 136/87; PULSE 84; RESP 18; TEMP 36.3; O2SAT 93
[2024-07-29] MEDS: oxyCODONE HCl Immed Release 5 MG TABLET PO ×4 (03:40→23:57)
[2024-07-29] MEDS: Heparin Sodium,Porcine 5,000 UNIT/ML VIAL 5000 UNIT SUBCUT ×3 (03:41→19:50)
[2024-07-29] MEDS: Piperacillin Sodium/Tazobactam 3.375 GM in 0.9 % Sodium Chloride 50 ML IV ×4 (04:15→23:50)
[2024-07-29 07:49] VITALS: BP 130/82; PULSE 87; RESP 18; TEMP 36.4; O2SAT 94
[2024-07-29] MEDS: 0.9 % Sodium Chloride Flush 3 ML SYRINGE IVFLUSH ×2 (08:25→17:00)
--- NOTE | 2024-07-29 13:06 | P.PNGS_ITS ---
Subjective Subjective Date of Service: 07/29/24 Interval history: Patient is doing okay. He has a lot of pain in the middle of the night and early in the morning but now is feeling better. He has been up walking around he was able to tolerate some diet no nausea or vomiting. WILLARD drain showing little bit slightly bilious fluid. Physical Exam 2 Vital Signs: Vital Signs: Last Vital Signs Temp 97.5 F 07/29/24 07:49 Pulse 87 07/29/24 07:49 Resp 18 07/29/24 07:49 BP 130/82 07/29/24 07:49 Pulse Ox 94 07/29/24 07:49 O2 Del Method Room Air 07/29/24 07:49 O2 Flow Rate 2 07/28/24 04:07 BMI result Body Mass Index 28.4 Const: General: cooperative, healthy appearing and acute distress mild Resp: Effort & Inspection: normal respiratory effort Auscultation: clear to auscultation bilaterally Cardio: Rate: regular rate Rhythm: regular rhythm GI: Other: Abdomen is soft mild distention tender in the right upper quadrant no guarding no rebound no peritoneal signs the WILLARD drain is in place draining Skin: Other: Nonicteric Objective Data Active Medications Calcium Carbonate (Calcium Carbonate 750 Mg Tab.Chew) 750 mg PO Q4H PRN PRN Reason: Heartburn Heparin Sodium (Porcine) (Heparin Sodium,Porcine 5,000 Unit/Ml Vial) 5,000 unit SUBCUT Q8H [facility] Last Admin: 07/29/24 03:41 Dose: 5,000 unit Documented By: JAIMIE Piperacillin Sod/Tazobactam (Sod 3.375 gm/ Sodium Chloride) 50 mls @ 100 mls/hr IV Q6H [facility] Last Infusion: 07/29/24 11:14 Dose: Infused Documented By: TYRON Melatonin (Melatonin 3 Mg Tablet) 6 mg PO BEDTIME PRN PRN Reason: Insomnia Morphine Sulfate (Morphine Sulfate 4 Mg/Ml Cartridge) 4 mg IVPUSH Q3H PRN; Protocol PRN Reason: Pain, Severe (Pain Scale 7-10) Ondansetron HCl (Ondansetron Hcl 4 Mg/2 Ml Vial) 4 mg IVPUSH Q6H PRN PRN Reason: nausea Oxycodone HCl (Oxycodone Hcl Immed Release 5 Mg Tablet) 5 mg PO Q4H PRN PRN Reason: Pain, Moderate(Pain Scale 4-6) Last Admin: 07/29/24 10:17 Dose: 5 mg Documented By: TYRON Sodium Chloride (0.9 % Sodium Chloride Flush 3 Ml Syringe) [address] [facility] Last Admin: 07/29/24 08:25 Dose: 3 ml Documented By: TYRON Labs 07/28/24 08:52 07/28/24 08:52 Microbiology Microbiology Results: Microbiology 07/26/24 20:29 Blood Culture - Preliminary Blood - Venous No growth after 48 hours. 07/26/24 20:22 Blood Culture - Preliminary Blood - Venous No growth after 48 hours. Procedures Date of Service Date of Service: 07/29/24 Progress Note: A&P Assessment and plan (1) S/P cholecystectomy: Status: Acute Assessment and Plan: Patient is postop day 2 status post laparoscopic cholecystectomy overall doing okay. It was difficult operation converted to open and over-sewing the proximal gallbladder duct area. There maybe some slight leakage of some bile but at this point we will just keep WILLARD drain in place encouraging him to advance his diet and ambulate. Reassess tomorrow. He understands and agrees with the above plan. P.o. pain medication Time Spent With Patient Time: Total time managing care of this patient today ____ minutes. Quality Stroke Does the patient have a stroke diagnosis?: No VTE Prior VTE?: No VTE Risk Level:: Medical - moderate - high VTE Device Contraindication: N/A - Device Ordered VTE Drug Contraindication: N/A - Med Ordered
[2024-07-29 14:00] VITALS: BP 138/86; PULSE 90; RESP 18; TEMP 36.7; O2SAT 95
[2024-07-29 15:22] VITALS: BP 130/76; PULSE 88; RESP 18; TEMP 36.8; O2SAT 94
[2024-07-29 19:17] VITALS: BP 134/73; PULSE 88; RESP 18; TEMP 36.6; O2SAT 96
[2024-07-30] MEDS: Piperacillin Sodium/Tazobactam 3.375 GM in 0.9 % Sodium Chloride 50 ML IV ×4 (04:10→23:12)
[2024-07-30] MEDS: Heparin Sodium,Porcine 5,000 UNIT/ML VIAL 5000 UNIT SUBCUT ×3 (04:11→19:52)
[2024-07-30 04:20] VITALS: BP 132/79; PULSE 73; RESP 18; TEMP 36.6; O2SAT 95
[2024-07-30 07:58] VITALS: BP 132/86; PULSE 73; RESP 18; TEMP 36.8; O2SAT 95
[2024-07-30] MEDS: 0.9 % Sodium Chloride Flush 3 ML SYRINGE IVFLUSH ×3 (08:13→23:14)
[2024-07-30] MEDS: oxyCODONE HCl Immed Release 5 MG TABLET PO ×2 (09:18→19:57)
[2024-07-30 14:00] VITALS: BP 117/83; PULSE 76; RESP 18; TEMP 36.8; O2SAT 97
--- NOTE | 2024-07-30 15:04 | PM.PNGS ---
Subjective Subjective Date of Service: 07/30/24 Interval history: pt feeling ok no new issues, moving around less pain -- keyon still draining some bilious material from ruq site Physical Exam Vital Signs: Vital Signs: Last Vital Signs Temp 98.2 F 07/30/24 14:00 Pulse 76 07/30/24 14:00 Resp 18 07/30/24 14:00 BP 117/83 07/30/24 14:00 Pulse Ox 97 07/30/24 14:00 O2 Del Method Room Air 07/30/24 14:00 O2 Flow Rate 2 07/28/24 04:07 BMI result Body Mass Index 28.4 Const: General: cooperative, healthy appearing, comfortable and no acute distress GI: Other: abdo soft nondistended ncisional tenderness - incision looks good keyon drain with somewhat bilious material Objective Data Active Medications Calcium Carbonate (Calcium Carbonate 750 Mg Tab.Chew) 750 mg PO Q4H PRN PRN Reason: Heartburn Heparin Sodium (Porcine) (Heparin Sodium,Porcine 5,000 Unit/Ml Vial) 5,000 unit SUBCUT Q8H [facility] Last Admin: 07/30/24 13:58 Dose: 5,000 unit Documented By: TYRON Piperacillin Sod/Tazobactam (Sod 3.375 gm/ Sodium Chloride) 50 mls @ 100 mls/hr IV Q6H [facility] Last Infusion: 07/30/24 11:27 Dose: Infused Documented By: TYRON Melatonin (Melatonin 3 Mg Tablet) 6 mg PO BEDTIME PRN PRN Reason: Insomnia Morphine Sulfate (Morphine Sulfate 4 Mg/Ml Cartridge) 4 mg IVPUSH Q3H PRN; Protocol PRN Reason: Pain, Severe (Pain Scale 7-10) Ondansetron HCl (Ondansetron Hcl 4 Mg/2 Ml Vial) 4 mg IVPUSH Q6H PRN PRN Reason: nausea Oxycodone HCl (Oxycodone Hcl Immed Release 5 Mg Tablet) 5 mg PO Q4H PRN PRN Reason: Pain, Moderate(Pain Scale 4-6) Last Admin: 07/30/24 09:18 Dose: 5 mg Documented By: TYRON Sodium Chloride (0.9 % Sodium Chloride Flush 3 Ml Syringe) [facility] Last Admin: 07/30/24 08:13 Dose: 3 ml Documented By: TYRON Labs 07/28/24 08:52 07/28/24 08:52 Procedures Date of Service Date of Service: 07/30/24 Progress Note: A&P Assessment and plan (1) S/P cholecystectomy: Status: Acute Assessment and Plan: pt pod 3 sp lap to open cholecstectomy - doing well-advance diet iv antibiotics - keyon with some decreasing bilious output - plan to cont with keyon drain and eval tomorrow - output amounts decreasing Time Spent With Patient Time: Total time managing care of this patient today ____ minutes. Quality Stroke Does the patient have a stroke diagnosis?: No VTE Prior VTE?: No VTE Risk Level:: Medical - moderate - high VTE Device Contraindication: N/A - Device Ordered VTE Drug Contraindication: N/A - Med Ordered
[2024-07-30 15:10] VITALS: BP 143/94; PULSE 78; RESP 18; TEMP 36.6; O2SAT 94
[2024-07-30 18:50] VITALS: BP 146/80; PULSE 87; RESP 18; TEMP 36.6; O2SAT 94
[2024-07-31 03:49] VITALS: BP 123/82; PULSE 80; RESP 16; TEMP 36.8; O2SAT 95
[2024-07-31] MEDS: Heparin Sodium,Porcine 5,000 UNIT/ML VIAL 5000 UNIT SUBCUT ×3 (04:57→19:49)
[2024-07-31] MEDS: Piperacillin Sodium/Tazobactam 3.375 GM in 0.9 % Sodium Chloride 50 ML IV ×4 (04:58→23:25)
[2024-07-31 07:24] VITALS: BP 128/82; PULSE 75; RESP 16; TEMP 37.2; O2SAT 95
--- NOTE | 2024-07-31 08:14 | PM.PNGS ---
Subjective Subjective Date of Service: 08/01/24 Interval history: Looks well Says he feels well Tolerating diet Has been ambulating Physical Exam Vital Signs: Vital Signs: Last Vital Signs Temp 99.0 F 07/31/24 07:24 Pulse 75 07/31/24 07:24 Resp 16 07/31/24 07:24 BP 128/82 07/31/24 07:24 Pulse Ox 95 07/31/24 07:24 O2 Del Method Room Air 07/31/24 07:24 O2 Flow Rate 2 07/28/24 04:07 BMI result Body Mass Index 28.4 Const: General: comfortable and no acute distress Eyes: Other: Anicteric sclerae Resp: Effort & Inspection: normal respiratory effort Cardio: Rate: regular rate GI: Other: Incisions clean and dry WILLARD drain scanty serosanguineous, does not appear bilious at this time Palpation (GI): Soft to palpation, not firm and no guarding Objective Data Active Medications Calcium Carbonate (Calcium Carbonate 750 Mg Tab.Chew) 750 mg PO Q4H PRN PRN Reason: Heartburn Heparin Sodium (Porcine) (Heparin Sodium,Porcine 5,000 Unit/Ml Vial) 5,000 unit SUBCUT Q8H [facility] Last Admin: 07/31/24 04:57 Dose: 5,000 unit Documented By: TONY Piperacillin Sod/Tazobactam (Sod 3.375 gm/ Sodium Chloride) 50 mls @ 100 mls/hr IV Q6H [facility] Last Infusion: 07/31/24 05:28 Dose: Infused Documented By: TONY Melatonin (Melatonin 3 Mg Tablet) 6 mg PO BEDTIME PRN PRN Reason: Insomnia Morphine Sulfate (Morphine Sulfate 4 Mg/Ml Cartridge) 4 mg IVPUSH Q3H PRN; Protocol PRN Reason: Pain, Severe (Pain Scale 7-10) Ondansetron HCl (Ondansetron Hcl 4 Mg/2 Ml Vial) 4 mg IVPUSH Q6H PRN PRN Reason: nausea Oxycodone HCl (Oxycodone Hcl Immed Release 5 Mg Tablet) 5 mg PO Q4H PRN PRN Reason: Pain, Moderate(Pain Scale 4-6) Last Admin: 07/30/24 19:57 Dose: 5 mg Documented By: TONY Sodium Chloride (0.9 % Sodium Chloride Flush 3 Ml Syringe) 3 ml IVFLUSH QSHIFT [facility] Last Admin: 07/30/24 23:14 Dose: 3 ml Documented By: TONY Labs 07/28/24 08:52 07/28/24 08:52 Procedures Date of Service Date of Service: 08/01/24 Progress Note: A&P Assessment and plan (1) Acute cholecystitis due to biliary calculus: Status: Acute Assessment and Plan: Status post cholecystectomy Clinically doing well Good pain control WILLARD drain output does not appear bilious today He says he wants to stay until tomorrow Time Spent With Patient Time: Total time managing care of this patient today ____ minutes. Quality Stroke Does the patient have a stroke diagnosis?: No VTE Prior VTE?: No VTE Risk Level:: Medical - moderate - high VTE Device Contraindication: N/A - Device Ordered VTE Drug Contraindication: N/A - Med Ordered
[2024-07-31] MEDS: 0.9 % Sodium Chloride Flush 3 ML SYRINGE IVFLUSH ×3 (08:34→23:25)
--- NOTE | 2024-07-31 14:22 | MHC.CM.PN ---
EMR REVIEWED. PT CONTINUES WITH WILLARD DRAIN BUT LESS OUTPUT. CM WILL CONTINUE TO FOLLOW FOR ANY CHANGE TO DC PLAN/NEEDS.
[2024-07-31 15:08] VITALS: BP 148/83; PULSE 84; RESP 16; TEMP 36.6; O2SAT 96
[2024-07-31 19:05] VITALS: BP 135/92; PULSE 100; RESP 18; TEMP 36.3; O2SAT 97
[2024-07-31] MEDS: oxyCODONE HCl Immed Release 5 MG TABLET PO (23:34)
[2024-08-01 03:16] VITALS: BP 128/84; PULSE 79; RESP 17; TEMP 36.7; O2SAT 94
[2024-08-01] MEDS: Heparin Sodium,Porcine 5,000 UNIT/ML VIAL 5000 UNIT SUBCUT (04:55)
[2024-08-01] MEDS: Piperacillin Sodium/Tazobactam 3.375 GM in 0.9 % Sodium Chloride 50 ML IV (04:55)
[2024-08-01 07:42] VITALS: BP 123/79; PULSE 84; RESP 16; TEMP 36.4; O2SAT 94
--- NOTE | 2024-08-01 08:00 | P.PNGS_ITS ---
Subjective Subjective Date of Service: 08/01/24 Interval history: feels well good oral intake has been ambulating well denies signficant pain Physical Exam 2 Vital Signs: Vital Signs: Last Vital Signs Temp 97.6 F 08/01/24 07:42 Pulse 84 08/01/24 07:42 Resp 16 08/01/24 07:42 BP 123/79 08/01/24 07:42 Pulse Ox 94 08/01/24 07:42 O2 Del Method Room Air 08/01/24 07:42 O2 Flow Rate 2 07/28/24 04:07 BMI result Body Mass Index 28.4 Const: General: comfortable and no acute distress Eyes: Sclerae: sclerae normal Resp: Effort & Inspection: normal respiratory effort Cardio: Rate: regular rate GI: Other: incisions clean and dry, WILLARD drain scanty serosanguinous, not bilious Palpation (GI): Soft to palpation, not firm and no guarding Objective Data Active Medications Calcium Carbonate (Calcium Carbonate 750 Mg Tab.Chew) 750 mg PO Q4H PRN PRN Reason: Heartburn Heparin Sodium (Porcine) (Heparin Sodium,Porcine 5,000 Unit/Ml Vial) 5,000 unit SUBCUT Q8H [facility] Last Admin: 08/01/24 04:55 Dose: 5,000 unit Documented By: TONY Piperacillin Sod/Tazobactam (Sod 3.375 gm/ Sodium Chloride) 50 mls @ 100 mls/hr IV Q6H [facility] Last Infusion: 08/01/24 05:25 Dose: Infused Documented By: TONY Melatonin (Melatonin 3 Mg Tablet) 6 mg PO BEDTIME PRN PRN Reason: Insomnia Ondansetron HCl (Ondansetron Hcl 4 Mg/2 Ml Vial) 4 mg IVPUSH Q6H PRN PRN Reason: nausea Oxycodone HCl (Oxycodone Hcl Immed Release 5 Mg Tablet) 5 mg PO Q4H PRN PRN Reason: Pain, Moderate(Pain Scale 4-6) Last Admin: 07/31/24 23:34 Dose: 5 mg Documented By: TONY Sodium Chloride (0.9 % Sodium Chloride Flush 3 Ml Syringe) 3 ml IVFLUSH QSHIFT [facility] Last Admin: 07/31/24 23:25 Dose: 3 ml Documented By: TONY Labs 07/28/24 08:52 07/28/24 08:52 Microbiology Microbiology Results: Microbiology 07/26/24 20:29 Blood Culture - Final Blood - Venous No growth after 5 days. 07/26/24 20:22 Blood Culture - Final Blood - Venous No growth after 5 days. Procedures Date of Service Date of Service: 08/01/24 Progress Note: A&P Assessment and plan (1) Acute cholecystitis due to biliary calculus: Status: Acute Assessment and Plan: s/p open cholecystectomy - gangrenous cholecystitis doing very well says he is ready to be discharged looks well WILLARD drain dc'ed dc instructions reviewed at beside Time Spent With Patient Time: Total time managing care of this patient today ____ minutes. Quality Stroke Does the patient have a stroke diagnosis?: No VTE Prior VTE?: No VTE Risk Level:: Medical - moderate - high VTE Device Contraindication: N/A - Device Ordered VTE Drug Contraindication: N/A - Med Ordered
--- NOTE | 2024-08-01 08:48 | MHC.CM.PN ---
Patient medically cleared for dc home self care. Private transport.
--- NOTE | 2024-08-01 13:16 | P.DS_ITS ---
DS: Providers Provider Date of Service: 08/01/24 Date of admission: 07/26/24 20:21 Date of discharge: 08/01/24 Primary care physician: Rosie Blackmon MD Attending physician on admission: Aneudy Camargo Attending physician on discharge: Aneudy Camargo DS: Diagnosis Discharge Diagnosis (1) Acute cholecystitis due to biliary calculus: Status: Acute DS: Summary Hospital Course Hospital Course: HPI AT ADMISSION: Stan Hughes is a 53 year old male admitted last night for gallstones with pain. He says had been in good health but about 5 days ago, he had an episode of pain on the right upper quadrant at home. He took some pain medications and this resolved after a few hours. He did well that Wednesday which was 4 days ago. Three days ago, he started to have the same pain again. This persisted this time and he went to the ER 2 days ago. He had an ultrasound done showing gallstones but at that time, he decided to go home when he had some improvement of his pain. However, his pain had persisted and worsened yesterday so he came back to the ER. He describes some nausea as well. His ultrasound and CT scan show acute cholecystitis with a markedly distended gallbladder with significant thickening of the gallbladder wall and inflammatory changes that extend into the adjacent flexure. He otherwise denies any medical problems. He says his pain is specific in location on the right upper quadrant. HOSPITAL COURSE: He was admitted to the surgical service for further treatment of the acute cholecystitis. IVF and IV abx were initiated. It was recommended to proceed with laparoscopic cholecystectomy with possible open cholecystectomy. He agreed to proceed and was added onto the OR schedule for that day. His imaging suggested severe inflammatory changes surrounding the CT scan and it was conveyed to the patient there was a higher likelihood that we may need to convert to an open procedure given the findings. Procedure: On 07/27/24, Attempted laparoscopic cholecystectomy converted to open cholecystectomy was performed by Dr. Camargo without immediate complication. He was found to have acute gangrenous cholecystitis. WILLARD drain was placed intraoperatively. He tolerated the procedure well and had an uneventful post operative course. He remained inpatient for 5 days for pain control. His diet was advanced as tolerated. He was noted to have some bilious drainage from his WILLARD drain which resolved on its own. His WBC count improved. He was ambulating without difficulty. His pain improved and on the day of discharge he was comfortable on oral analgesics. He was tolerating a solid diet. His incision was clean and abd was benign. His WILLARD drain had scant serosanguineous output and was removed. He was hemodynamically stable. He was discharged to home on 08/01/24 in stable condition. He is to follow up in the office in 2 weeks. Status at Discharge Functional status at discharge: independent ambulation Overall status at discharge: patient is progressing back to baseline Time Attestation Discharge Coordination Time (in mins): 35 Quality: Safe Use of Opioids Does Pt have an Active Cancer Diagnosis on the Problem List?: No Quality: Stroke Does the patient have a stroke diagnosis?: No Physical Exam Vital Signs: Vital Signs: Last Vital Signs Temp 97.6 F 08/01/24 07:42 Pulse 84 08/01/24 07:42 Resp 16 08/01/24 07:42 BP 123/79 08/01/24 07:42 Pulse Ox 94 08/01/24 07:42 O2 Del Method Room Air 08/01/24 07:42 O2 Flow Rate 2 07/28/24 04:07 BMI result Body Mass Index 28.4 Const: General: comfortable, no acute distress and alert Orientation/consciousness: patient oriented x3 GI: Inspection: No distended and Yes incision (clean) Palpation (GI): Soft to palpation, Tenderness to palpation present (GI) (mild incisional) and no guarding Skin: General skin exam: no jaundice Neuro: General: patient oriented x3 DS: Data Data Completed and Pending Completed studies during hospitalization [Text1]: 07/27/24 15:04 Surgical [PTH] Routine Gallbladder, cholecystectomy: Acute gangrenous cholecystitis with cholelithiasis Discharge Plan Discharge Anticipated Discharge Date/Time: 07/30/24 10:49 Patient Disposition: Home, Self-Care Discharge Diagnosis: acute gangrenous cholecystitis, s/p laparoscopic cholecystectomy Referrals: Aneudy Camargo MD [Physician] - 2 Weeks Physician,Unknown J [Physician] - 1 Week Discharge Medications: New amoxicillin-pot clavulanate 875-125 mg tablet 1 tab PO BID Qty: 6 0RF Discontinued oxycodone 5 mg tablet 5 mg PO Q6H PRN (Reason: pain) Qty: 20 0RF Rx Instructions: Partial Fill upon patient request. Discharge Orders: Discharge Order (Routine); Ordered 08/01/24 Ordered By: Aneudy Camargo Diet: Advance to usual diet Activity on Discharge: No heavy lifting Stand Alone Forms: Patient Portal Discharge page Print Language: Polish Activity Restrictions/Additional Instructions: If the incision area is tender, you may apply an ice pack for short intervals (No more than 20 minutes on, followed by at least 20 minutes off). Do not apply heat. Do not use creams, lotions, or topical antibiotics. These can cause infection or allergic reaction. Ok to shower. You have eryn closing your incision and these will be removed approximately 10-14 days after surgery. NO HEAVY LIFTING (>10lbs) or strenuous activity. Follow up in office. ([phone]) Call Your Doctor If: -Your temperature exceeds 101.5? F -You experience excessive pain or swelling -You have an unexpected reaction to medication -You have excessive bleeding -You experience continued vomiting/nausea -Your incision begins to separate -Your incision shows signs of infection such as increased redness, swelling, excessive pain, drainage (light blood or clear fluid is normal) or heat Care Plan Goals: Return to baseline health and resume normal activities following recovery period. Health Concerns: acute gangrenous cholecystitis Plan of Treatment: s/p open cholecystectomy f/u in office in 2 weeks Assessment: Doing well post op. Discharge Date/Time: 08/01/24 10:30
== END 2024-08-01 10:30 | disposition home or self-care (01) | DRG 416 ==
LOC: HO.ED 20:27 → HO.EDOVER 20:40 → HO.S3 23:50
PROVIDERS: Physician Assistant; Physician Assistant Medical; Admitting Provider Surgery; Emergency Provider Emergency Medicine Emergency Medical Services; PCP Pediatrics; Visit Provider Surgery
PROC: 0FT44ZZ Resection of Gallbladder, Percutaneous Endoscopic Approach (ICD-10-PCS; CPT 47562; principal; 2024-07-27 13:30)
DX: K80.00 Calculus of gallbladder with acute cholecystitis without obstruction (principal); K82.A1 Gangrene of gallbladder in cholecystitis; F17.290 Nicotine dependence, other tobacco product, uncomplicated; Z71.6 Tobacco abuse counseling
CPT/HCPCS: 36415; 74177; 76705; 80048; 80076; 83605; 83690; 85025; 85027; 86850; 86900; 86901; 87040; 88304; 99285; J0131; J0696; J1100; J1171; J1644; J1836; J2003; J2250; J2270; J2405; J2543; J2704; J2795; J3010; J7120; Q9967

== ENCOUNTER → 2024-07-26 20:21 | Outpatient (BNV) | payer SELFPAY | PROVIDERS: Admitting Provider Surgery; Emergency Provider Emergency Medicine Emergency Medical Services; Visit Provider Physician Assistant Surgical | DX: Z90.49 Acquired absence of other specified parts of digestive tract (principal) | CPT/HCPCS: 47600; 99024; 99222; 99499 ==

== ENCOUNTER 2024-08-10 10:59 | Outpatient (AMB) | payer SELFPAY ==
--- NOTE | 2024-08-10 11:02 | A.OFFVIS_ITS ---
Vital Signs 08/10/24 11:08 Height 5 ft 5 in Weight 169 lb 4 oz BMI 28.2 BP 141/92 H Blood Pressure Location Rt brachial Position Sitting Pulse 110 H Intake Visit Reasons: S/P lap jhoan Intake Note: This patient presents for post-op assessment status post Attempted laparoscopic cholecystectomy converted to open cholecystectomy. Pt c/o; reports surgical area is sensitive to the touch, reports no other complaints. 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 He underwent open cholecystectomy for acute gangrenous cholecystitis as an inpatient last 07/27/2024. He tolerated procedure well. He was discharged on postop day 5. He feels well overall. He denies any significant GI complaints. He has good oral intake. [facility] Surgical History History of laparoscopic cholecystectomy (~07/27/24) Social History Household Members: Spouse Housing: House Are you a primary home health care coordinator to a significant other at home: No Do you presently have visiting nurse or other home services: No Patient Tobacco Use Status: Current someday Tobacco user Tobacco use type: Cigarette and Smokeless Tobacco Cigarettes Per Day: 1 Second Hand Smoke Exposure: No service: No Review of Systems Const Denies chills and Denies fever(s) Card Denies chest pain at rest Resp Denies cough GI Denies vomiting Physical Exam Vital Signs: Last Vital Signs Pulse 110 H 08/10/24 11:08 BP 141/92 H 08/10/24 11:08 BMI result Body Mass Index 28.2 Const General: comfortable and no acute distress Eyes Other: Anicteric sclerae GI Other: Incisions clean and dry, well healed, eryn intact Palpation (GI): Soft to palpation, not firm and no guarding Assessment & Plan Assessment & Plan (1) S/P cholecystectomy: Code(s): Z90.49 - Acquired absence of other specified parts of digestive tract Category: Surgical Plan: He is doing well after open cholecystectomy for gangrenous cholecystitis last 07/27/2024. I removed his skin eryn. His incisions are well healed. I advised him to avoid lifting anything more than 20 lb for at least 2 more weeks He can otherwise follow up on a p.r.n. basis. His path report confirms gangrenous cholecystitis. Coding Level of Care Code Global (66933) Diagnoses S/P cholecystectomy Z90.49
[2024-08-10 11:08] VITALS: BP 141/92; PULSE 110; BMI 28.2
== END 2024-08-10 11:37 | disposition home or self-care (01) ==
PROVIDERS: PCP Pediatrics; Visit Provider Surgery
DX: Z90.49 Acquired absence of other specified parts of digestive tract (principal)
CPT/HCPCS: 99024

== ENCOUNTER → 2024-08-10 10:59 | Outpatient (BNVA) | payer OTHER, SELFPAY | PROVIDERS: PCP Pediatrics; Visit Provider Surgery | DX: Z48.1 Encounter for planned postprocedural wound closure (principal); Z90.49 Acquired absence of other specified parts of digestive tract | CPT/HCPCS: 99212 ==